=== PATIENT | female | born 1985 | race Caucasian/White ===

== ENCOUNTER 2023-05-28 22:16 | Emergency (ER) | payer SELFPAY ==
[~2023-05-28] VITALS: Ht 165.1 cm; Wt 70.0 kg
[2023-05-28 22:18] VITALS: BP 123/65; PULSE 107; RESP 16; TEMP 98.5; O2SAT 98
== END 2023-05-28 23:15 | disposition left against medical advice (07) ==
LOC: ER 22:16
DX: S06.0XAA Concussion with loss of consciousness status unknown, initial encounter (principal); R56.9 Unspecified convulsions; W19.XXXA Unspecified fall, initial encounter; Y93.89 Activity, other specified; Y92.89 Other specified places as the place of occurrence of the external cause; Y99.8 Other external cause status
CPT/HCPCS: 99283